=== PATIENT | male | born 1985 | race Caucasian/White ===

== ENCOUNTER 2024-07-21 20:17 | Emergency (ER) | payer SELFPAY ==
[2024-07-21 20:19] VITALS: BP 115/61
--- NOTE | 2024-07-21 23:25 | ED.MUSCINJ ---
HPI-Injury
General
Chief Complaint: Fall
Source: patient
Exam Limitations: none
Time Seen by Provider: 07/21/24 21:07
Nursing documentation reviewed up to this point in time: agreed with
History of Present Illness-Injury
Initial Injury comments:
Patient states he fell thru stairs. Denies hitting his head. COmplains of pain to his left distal posterior thigh, left knee, left footand ankle. Injury occurred today.
Past History
Past History
ED Past Medical History: None
ED Past Surgical History: None
Social History
Tobacco: Non-smoker
Alcohol: None
Drug: None
Personal:
Living: with family
Employment: Employed
Phy Exam
General Physical Exam
General Presentation: well appearing and no apparent distress
General age: other
General Skin: warm and dry
General Habitus: normal
General Mental: alert
Neurological Exam
Neurological Exam: alert and oriented x3
Musculoskeletal Exam
Musculoskeletal Exam: neuro vasc intact and other (Achilles intact. No hip pain)
Skin Exam
Skin Exam: normal color, warm/dry, no rash and other (Bruising noted to left lateral poterior thigh)
Psychiatric Exam
Psychiatric Exam: normal mood/affect
Injury Course
Orders/Labs/Results
Orders:
Orders
07/21/24 20:22
Ankle, left 3 view CR [CR Ankle - Left Min 3 Views ] Urgent
Comment:
Reason For Exam: fall
Foot, Left 3 View [CR Foot - Left Min 3 Views] Urgent
Comment:
Reason For Exam: fall
Knee, Left 4 or More Views [CR Knee - Left 4 Or More View*] Urgent
Comment:
Reason For Exam: fall
07/21/24 21:12
Ortho Boot Left- Treatment ONCE
Short or tall?: Short
*Radiology
Radiology exam reviewed: radiology read reviewed
*Pulse Oximetry
Patient hypoxic: no
*Critical Care Note
Total Time (30-74mins, 75-104mins- exclusive of procedures): Not Applicable
ED Attending Note
-
Portions of this chart may have been created with voice recognition software.� Occasional wrong word or��sound alike� substitutions may have occurred due to the inherent limitations of voice recognition software.
Discharge Plan
Departure
Patient Disposition: Home (Routine Discharge)
Date of Disposition: 07/21/24
Time of Disposition: 21:13
Patient with high blood pressure during this ER visit?: No
Condition: Good
Covid-19: Not Applicable
Discharge Problem:
Metatarsal fracture, Contusion of left thigh
Instructions: Using Cold for Pain, Contusion, Foot Fracture
Prescriptions:
No Action
linezolid 600 mg Tablet
600 mg PO BID Qty: 14 0RF
Referrals:
Aureliano Landa MD [Active] -
Stand Alone Forms: Return to Work
Activity Restrictions/Additional Instructions:
Follow up with your orthopedic provider through workman's comp in the AM
Interventions
Interventions:
*Risk Screen - Suicide Last Done: 07/21/24 21:10
*General Assessment Last Done: 07/21/24 21:10
*Neglect/Abuse Screening Last Done: 07/21/24 21:10
*ED COVID-19 Vaccine History Last Done: 07/21/24 21:09
*Nursing Disposition Last Done: 07/21/24 22:00
ED-Musculoskeletal Assessment Last Done: 07/21/24 21:10
ED- Neurological Assessment Last Done: 07/21/24 21:10
ED-Skin Assessment Last Done: 07/21/24 21:10
Discharge Date and Time
Discharge Date/Time: 07/21/24 22:01
Print Language: SLOVENIAN
== END 2024-07-21 22:01 | disposition home or self-care (01) ==
LOC: EMR 20:17
PROVIDERS: EMERGENCY PHYSICIAN Emergency Medicine; FAMILY PHYSICIAN Internal Medicine
DX: S92.355A Nondisplaced fracture of fifth metatarsal bone, left foot, initial encounter for closed fracture (principal); S70.12XA Contusion of left thigh, initial encounter; W10.9XXA Fall (on) (from) unspecified stairs and steps, initial encounter; Y99.0 Civilian activity done for income or pay
CPT/HCPCS: 99283; 73564; 73610; 73630